=== PATIENT | female | born 1955 | race Caucasian/White ===

== ENCOUNTER 2023-05-19 07:04 | Observation (INO) | payer MEDICARE, MEDICAID ==
[~2023-05-19] VITALS: Ht 167.6 cm; Wt 96.2 kg
[~2023-05-19 07:04] MED LIST: LOSA100T25 PO; TRAZ-228 PO; VANCOMYCIN HCL 1000 MG VL ONE
[2023-05-19] MEDS ORDERED: TRANEXAMIC ACID 20 ML ONE (07:12)
[2023-05-19] MEDS ORDERED: BUPIVACAINE 0.25% INJ 50ML VIAL ONE ×2 (07:12→09:09)
[2023-05-19] MEDS ORDERED: ceFAZolin 1GM/50ML 100 ML IV ONE (07:53)
[2023-05-19] MEDS ORDERED: DexAMETHasone SOD PHOS 4 MG/1ML SDV INJ ONE (09:10)
[2023-05-19] MEDS ORDERED: PROPOFOL 10 MG/ML 20 ML IV ONE ×3 (09:25→11:04)
[2023-05-19] MEDS ORDERED: DexAMETHasone SOD PHOS 10MG/1ML VIAL INJ ONE (09:26)
[2023-05-19] MEDS ORDERED: KETOROLAC TROMETH 30 MG/ML 1ML VIAL ONE (09:26)
[2023-05-19] MEDS ORDERED: ONDANSETRON HCL 4 MG/2 ML VIAL ONE (09:26)
[2023-05-19] MEDS ORDERED: GLYCOPYRROLATE 0.2 MG/ML 1ML VIAL ONE (09:26)
[2023-05-19] MEDS ORDERED: LIDOCAINE 2% (LOCAL ANESTH.) PF 5ml SDV ONE (09:26)
[2023-05-19] MEDS ORDERED: EPINEPHrine HCL 1 MG/1 ML AMP ONE (09:46)
[2023-05-19] MEDS ORDERED: ROPIVACAINE 0.5% (5MG/ML) 20ML AMPULE IJ ONE (10:07)
[2023-05-19] MEDS ORDERED: oxyCODONE HCL 5MG TAB PO PRN ×2 (11:30)
[2023-05-19] MEDS ORDERED: ACETAMINOPHEN 325 MG TAB PO PRN (11:30)
[2023-05-19] MEDS ORDERED: fentaNYL CITRATE 100 MCG/2 ML VL ONE (11:44)
[2023-05-19] MEDS: KETOROLAC TROMETH 30 MG/ML 1ML VIAL IV SCH ×2 (12:00→18:21)
[2023-05-19] MEDS: ACETAMINOPHEN 325 MG TAB PO SCH ×2 (12:00→18:20)
[2023-05-19] MEDS ORDERED: ALPRAZolam 0.5 MG TAB PO ONE (12:30)
[2023-05-19] MEDS: D5W/LACTATED RINGERS 1,000 ML IV SCH ×2 (14:39→21:30)
[2023-05-19 15:44] VITALS: BP 149/71; PULSE 45; RESP 14; O2SAT 99
[2023-05-19] MEDS ORDERED: hydrALAZINE HCL 20 MG/ML VL IV PRN (15:45)
[2023-05-19] MEDS: ceFAZolin 2 GM/D5W100ml 100 ML IV SCH (16:00)
[2023-05-19 16:15] VITALS: PULSE 42; RESP 14; O2SAT 98
[2023-05-19 16:55] VITALS: BP 129/74; PULSE 42; RESP 18; TEMP 97.9; O2SAT 95
[2023-05-19] MEDS ORDERED: PATIENTS OWN MEDICATION (Trazodone Hcl 100 MG) PO SCH (18:00)
[2023-05-19 20:00] VITALS: PULSE 52; PULSE 62; RESP 17; O2SAT 96
[2023-05-19] MEDS: PREGABALIN 25 MG CAP PO SCH (21:59)
[2023-05-19 22:00] VITALS: BP 121/75; PULSE 62; RESP 16; TEMP 97.6; O2SAT 96
[2023-05-19] MEDS ORDERED: traZODone HCL 50 MG TAB PO SCH (22:00)
[2023-05-19] MEDS ORDERED: TEMAZEPAM 15 MG CAP PO PRN (22:00)
[2023-05-20] VITALS (9 sets, daily range): BP systolic 114–152; BP diastolic 70–88; PULSE 52–65; RESP 16–19; TEMP 97.4–98.4; O2SAT 90–100
[2023-05-20] MEDS: ceFAZolin 2 GM/D5W100ml 100 ML IV SCH
[2023-05-20] MEDS: KETOROLAC TROMETH 30 MG/ML 1ML VIAL IV SCH ×5 (05:44→18:30)
[2023-05-20 05:46] LABS: Basophils # (auto) 0 10 ^3/uL (0-0.2); Basophils % (auto) 0.2 % (0.0-2.0); Eosinophils # (auto) 0 10 ^3/uL (0-0.8); Hematocrit 43.7 % (36.0-46.0); Hemoglobin 14.5 g/dL (12.2-16.2); Lymphocytes % (auto) 6.8 % (10.0-50.0); Mean Corpuscular Hemoglobin 31.3 pg (28.0-32.0); Mean Corpuscular Hgb Conc. 33.1 g/dL (32.0-36.0); Mean Corpuscular Volume 94.5 fL (80.0-100.0); Monocytes % (auto) 6.9 % (0.0-12.0); Neutrophils # (auto) 12.7 10 ^3/uL (1.6-8.6); Neutrophils % (auto) 86.1 % (37.0-80.0); Red Blood Cells 4.62 10^6/uL (4.0-5.20); Red Cell Distribution Width 13.1 % (11.8-14.3); White Blood Cell 14.8 10^3/uL (4.4-10.8)
[2023-05-20] MEDS: ACETAMINOPHEN 325 MG TAB PO SCH ×4 (05:46→17:55)
[2023-05-20 06:11] LABS: BUN/Creatinine Ratio 25.9 (10.0-20.0); Calcium 8.7 mg/dL (8.5-10.1); Potassium 4.1 mmol/L (3.5-5.1)
[2023-05-20] MEDS: D5W/LACTATED RINGERS 1,000 ML IV SCH ×2 (07:30→11:45)
[2023-05-20] MEDS: PREGABALIN 25 MG CAP PO SCH (09:18)
[2023-05-20] MEDS ORDERED: PATIENTS OWN MEDICATION (Losartan Potassium & Hydrochlo (Hyzaar) 1 TAB) PO SCH (10:00)
[2023-05-20] MEDS ORDERED: HCTZ 25 MG TAB PO SCH (10:00)
[2023-05-20] MEDS ORDERED: LOSARTAN POTASSIUM 50 MG TAB PO SCH (10:00)
[2023-05-20] MEDS ORDERED: ASPirin 81 mg TAB PO SCH (10:00)
[2023-05-20 18:58] LABS: Urine Bacteria NONE SEEN /hpf (None Seen); Urine Blood Negative /uL (Negative); Urine Mucus FEW (None Seen); Urine Specific Gravity 1.015 (1.001-1.035); Urine WBC <1 /hpf (0 - 5)
== END 2023-05-20 18:05 | disposition home or self-care (01) ==
LOC: SUR 07:04 → OVERFLOW 11:23 → WEST WING 14:23 → TELE-WESTW 22:31
PROVIDERS: ADMIT Internal Medicine; ATTEND Internal Medicine
DX: M17.12 Unilateral primary osteoarthritis, left knee (principal); I10 Essential (primary) hypertension; M21.00 Valgus deformity, not elsewhere classified, unspecified site; E66.9 Obesity, unspecified; G89.18 Other acute postprocedural pain; R00.1 Bradycardia, unspecified; Z96.652 Presence of left artificial knee joint; Z79.899 Other long term (current) drug therapy; Z98.890 Other specified postprocedural states; Z79.82 Long term (current) use of aspirin; Z68.34 Body mass index [BMI] 34.0-34.9, adult
CPT/HCPCS: 27447; 36415; 64447; 71045; 73562; 80048; 81001; 84443; 85025; 86850; 86900; 86901; 96365; 96375; 96376; 97110; 97116; 97163; 97530; C1776; G0378; J0171; J0690; J1100; J1885; J2001; J2405; J2704; J2795; J3010; J3370; J3490